=== PATIENT | female | born 1960 | race Caucasian/White ===

== ENCOUNTER → 2023-11-10 | Outpatient (REF) | payer MEDICARE ==
[~2023-11-10] MED LIST: ATORVASTATIN CA20 MG PO; AZITHROMYCIN250 MG PO; EPCLUSA 400 MG1 EACH; FISH OIL 1,0001 EAC7 PO; KLONOPIN0.5 MG PO; LEVOTHYROXINE50 MCG PO; MILK THISTLE175 M2 PO; MIRTAZAPINE7.5 MG PO; NEURONTIN100 MG PO; NICODERM CQ1 EAC2 TOP; PROPRANOLOL HCL20 MG; PROTONIX20 MG PO; VITAMIN E400 UNI1 PO
== END ==
LOC: US 09:30
PROVIDERS: ATTEND Nurse Practitioner
DX: K29.70 Gastritis, unspecified, without bleeding (principal); B19.20 Unspecified viral hepatitis C without hepatic coma; Z86.010 Personal history of colon polyps
CPT/HCPCS: 76700